=== PATIENT | male | born 2000 | race Caucasian/White ===

== ENCOUNTER 2023-11-13 00:05 | Emergency (ER) | payer BC ==
[~2023-11-13] VITALS: Ht 182.9 cm; Wt 77.3 kg
[2023-11-13 00:17] VITALS: TEMP 98.1
[2023-11-13 00:55] VITALS: BP 128/88; PULSE 86
== END 2023-11-13 00:55 | disposition home or self-care (01) ==
LOC: COL.ER 00:05
DX: S61.215A Laceration without foreign body of left ring finger without damage to nail, initial encounter (principal); W26.0XXA Contact with knife, initial encounter; Y93.G3 Activity, cooking and baking; Y92.009 Unspecified place in unspecified non-institutional (private) residence as the place of occurrence of the external cause